=== PATIENT | male | born 1995 | race Two or more races ===

== ENCOUNTER 2017-08-26 04:49 | Emergency (ER) | payer SELFPAY ==
[2017-08-26 04:55] VITALS: BP 132/100; PULSE 90; RESP 16; TEMP 98.2; O2SAT 100
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
== END 2017-08-26 05:39 | disposition home or self-care (01) ==
LOC: EDUNIT#
PROC: 0HQ1XZZ Repair Face Skin, External Approach (ICD-10-PCS; principal; 2017-08-26)
DX: S01.111A Laceration without foreign body of right eyelid and periocular area, initial encounter (principal); J45.909 Unspecified asthma, uncomplicated; Y08.89XA Assault by other specified means, initial encounter

== ENCOUNTER 2017-08-27 12:56 | Emergency (ER) | payer MEDICAID ==
[2017-08-27 13:02] VITALS: TEMP 98.2; O2SAT 95
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
[2017-08-27] MEDS ORDERED: AMOXICILLIN/CLAVULANATE POT 875/125 MG TAB PO ONE (14:32)
[2017-08-27 14:54] VITALS: BP 110/67; PULSE 88; RESP 16
== END 2017-08-27 15:04 | disposition home or self-care (01) ==
DX: S02.31XD Fracture of orbital floor, right side, subsequent encounter for fracture with routine healing (principal); T79.7XXD Traumatic subcutaneous emphysema, subsequent encounter; J45.909 Unspecified asthma, uncomplicated; Y04.0XXD Assault by unarmed brawl or fight, subsequent encounter